=== PATIENT | male | born 1975 | race Caucasian/White ===

== ENCOUNTER 2018-03-22 16:53 | Observation (INO) | payer OTHER ==
[~2018-03-22] VITALS: Ht 177.8 cm; Wt 88.0 kg
[2018-03-22 18:31] VITALS: BP 121/71
--- NOTE | 2018-03-22 19:15 | NUR ---
Pt was direct admit from Dr. Rubio's office to [facility] room 120 via wheelchair, accompanied & nursing staff. Pt transferred from [facility] to bed independently, steady gait noted. Pt here for c/o heartburn amd r/o CP. Pt currently denies pain. Admission assessment completed. Health history and home medications reviewed with pt. VSS. Pt lives at home with . SCD for VTE. Pt refused Pneumonia vaccine. POC reviewed with pt, understanding verbalized. Pt was given written information regarding hospital policies, unit procedures and contact persons. Valuables were checked and left at bedside. Cardio consulted. Dr Rubio called for orders. EKG, CXR and labs drawn. Call light within reach.
[2018-03-22 19:27] VITALS: BP 120/64
[2018-03-22] MEDS ORDERED: CALC11776 PO (19:51)
[2018-03-22] MEDS ORDERED: FAMOTIDINE 20 MG TABLET PO PRN (20:00)
[2018-03-22] MEDS ORDERED: NICOTINE 21MG PATCH. TD PRN (20:15)
[2018-03-22] MEDS: PANTOPRAZOLE 40 MG TABLET. PO SCH (21:00)
[2018-03-22 21:04] LABS: BASO # 0.1 x10^3/uL (0.0-0.2); BASO % 1 % (0-3); EOS # 0.2 x10^3/uL (0.0-0.7); EOS % 2 % (0-3); HEMATOCRIT 44.1 % (39.0-53.0); HEMOGLOBIN 15.2 g/dL (13.0-17.5); LYMPH # 2.8 x10^3/uL (1.0-4.8); LYMPH % 28 % (24-48); MEAN CORPUSCULAR HEMOGLOBIN 31 pg (25-35); MEAN CORPUSCULAR HGB CONC 34 g/dL (31-37); MEAN CORPUSCULAR VOLUME 90 fL (79-100); MONO # 0.7 x10^3/uL (0.0-1.1); MONO % 7 % (0-9); NEUT # 6.5 x10^3uL (1.8-7.7); NEUT % 64 % (31-73); PLATELET COUNT 167 x10^3/uL (140-400); RED CELL DISTRIBUTION WIDTH 13.5 % (11.5-14.5); WHITE BLOOD COUNT 10.3 x10^3/uL (4.0-11.0)
[2018-03-22 21:15] LABS: ALBUMIN 3.6 g/dL (3.4-5.0); ALBUMIN/GLOBULIN RATIO 1.1 (1.0-1.7); CALCIUM 8.9 mg/dL (8.5-10.1); CREATININE 1.1 mg/dL (0.7-1.3); GFR 73.4; POTASSIUM 3.7 mmol/L (3.5-5.1); TOTAL BILIRUBIN 0.2 mg/dL (0.2-1.0); TOTAL PROTEIN 6.8 g/dL (6.4-8.2)
[2018-03-22 22:24] VITALS: BP 119/72
--- NOTE | 2018-03-22 23:09 | RAD ---
PA and lateral chest radiograph. History: Chest pain, shortness of air, hypertension. Comparison: September 30, 2016. Findings: Cardiomediastinal silhouette is within normal limits for size. Bilateral lung whitney appear clear without evidence of infiltrate, effusion, or pneumothorax. Impression: 1. No acute cardiopulmonary process. Electronically signed by: Washington Norman MD (03/22/2018 11:06 PM) [facility]
[2018-03-23 05:03] LABS: BACTERIA,URINE 0 /HPF (0-FEW); BILIRUBIN,URINE NEG (NEG); CLARITY,URINE CLEAR; COLOR,URINE YELLOW; GLUCOSE,URINE NEG (NEG); NITRITE,URINE NEG (NEG); RBC,URINE 0 /HPF (0-2); SQUAMOUS EPITHELIAL CELL,UR OCC /LPF; UROBILINOGEN,URINE 0.2 mg/dL (0.2 mg/dL); WBC,URINE RARE /HPF (0-4)
[2018-03-23 05:28] VITALS: BP 118/70
[2018-03-23] MEDS: PANTOPRAZOLE 40 MG TABLET. PO SCH (08:33)
--- NOTE | 2018-03-23 10:00 | PDOC2 ---
CONSULT Date of Admission DATE: 03/23/18 TIME: 09:55 Reason for Consult: cp History of Present Illness Mr Sharpe is a 42 year old male who presented to his PCP office with complaints of chest pain for which he was admitted and consult was called. He reports pain in the epigastric area with burning up into his throat. He denies any increase with exertion, movement or deep inspiration. Discomfort is worse when laying down. He reports frequent reflux symptoms so tried antacids, drinking water and drinking milk without relief so presented for eval. He reports his symptoms improved after Protonix and pepcid given in ED. He reports his symptoms always occur around eating and are worse at night when laying down. He reports occasional midsternal pain that seems to be associated with painful swallowing of food, "like getting stuck". He reports some dyspnea on exertion which he states is stable and improved with inhaler use. He reports his functional capacity as at least 1 mile and denies any problems with stairs. He reports occasional palpitations which feel like rapid beats followed by skipped beats. He denies any associated symptoms and reports palpitations only last a few seconds. He denies any lightheadedness, presyncope or syncope. He does report occasional shortness of breath when initially laying down. He frequently uses his rescue inhaler at bedtime. Cardiovascular: hyperipidemia (He does not take recommended medication for HLD) Pulmonary: COPD GI: GERD Heme/Onc: No pertinent hx Hepatobiliary: No pertinent hx Psych: No pertinent hx Musculoskeletal: No pertinent hx Rheumatologic: No pertinent hx Infectious disease: No pertinent hx ENT: No pertinent hx Renal/: No pertinent hx Endocrine: No pertinent hx Dermatology: No pertinent hx Past Surgical History unremarkable Family History He denies any family history of premature coronary disease or SCD. +family history of factor V deficiency. Social History smoker, social ETOH, no illicit drugs Current Medications Current Medications Pantoprazole Sodium (Protonix) 40 mg DAILYAC PO Last administered on 03/23/18at 08:33; Start 03/22/18 at 21:00 Famotidine (Pepcid) 20 mg PRN BID PRN PO Acid Reflux Last administered on at 21:00; Start 03/22/18 at 20:00 Nicotine (Nicoderm Cq 21mg) 1 patch PRN DAILY PRN TD SMOKING CESSATION Last administered on 03/22/18at 21:01; Start 03/22/18 at 20:15 Active Scripts Active Reported Tums Ultra Strength (Calcium Carbonate) 1,177 Mg Tab.chew 1,177 Mg PO PRN QID PRN Allergies: Coded Allergies: No Known Drug Allergies (Unverified , 09/30/16) Review of System as per HPI or negative General: Alert, Oriented X3, Cooperative, No acute distress HEENT: Atraumatic, EOMI, Mucous membr. moist/pink Lungs: Other (coarse without overt crackles, rhonchi or wheezing) Heart: Regular rate, Normal S1, Normal S2, Other (no obvious murmurs, no gallops, clicks or rubs) Abdomen: Normal bowel sounds, Soft, No tenderness Extremities: No cyanosis, No edema, Normal pulses Neuro: Normal gait, Normal speech, Strength at 5/5 X4 ext Psych/Mental Status: Mental status NL, Mood NL VITALS Vital Signs Date Time Temp Pulse Resp B/P (MAP) Pulse Ox O2 Delivery O2 Flow Rate FiO2 03/23/18 05:28 97.9 77 18 118/70 (86) 93 Room Air Labs Laboratory Tests Test 03/22/18 20:30 03/23/18 02:15 03/23/18 04:00 03/23/18 07:07 White Blood Count 10.3 x10^3/uL (4.0-11.0) Red Blood Count 4.90 x10^6/uL (4.30-5.70) Hemoglobin 15.2 g/dL (13.0-17.5) Hematocrit 44.1 % (39.0-53.0) Mean Corpuscular Volume 90 fL (79-100) Mean Corpuscular Hemoglobin 31 pg (25-35) Mean Corpuscular Hemoglobin Concent 34 g/dL (31-37) Red Cell Distribution Width 13.5 % (11.5-14.5) Platelet Count 167 x10^3/uL (140-400) Neutrophils (%) (Auto) 64 % (31-73) Lymphocytes (%) (Auto) 28 % (24-48) Monocytes (%) (Auto) 7 % (0-9) Eosinophils (%) (Auto) 2 % (0-3) Basophils (%) (Auto) 1 % (0-3) Neutrophils # (Auto) 6.5 x10^3uL (1.8-7.7) Lymphocytes # (Auto) 2.8 x10^3/uL (1.0-4.8) Monocytes # (Auto) 0.7 x10^3/uL (0.0-1.1) Eosinophils # (Auto) 0.2 x10^3/uL (0.0-0.7) Basophils # (Auto) 0.1 x10^3/uL (0.0-0.2) D-Dimer (Opal) 0.47 mg/L (0.00-0.50) Sodium Level 139 mmol/L (136-145) Potassium Level 3.7 mmol/L (3.5-5.1) Chloride Level 103 mmol/L (98-107) Carbon Dioxide Level 28 mmol/L (21-32) Anion Gap 8 (6-14) Blood Urea Nitrogen 12 mg/dL (8-26) Creatinine 1.1 mg/dL (0.7-1.3) Estimated GFR (Cockcroft-Gault) 73.4 BUN/Creatinine Ratio 11 (6-20) Glucose Level 108 mg/dL (70-99) Calcium Level 8.9 mg/dL (8.5-10.1) Total Bilirubin 0.2 mg/dL (0.2-1.0) Aspartate Amino Transf (AST/SGOT) 23 U/L (15-37) Alanine Aminotransferase (ALT/SGPT) 47 U/L (16-63) Alkaline Phosphatase 62 U/L (46-116) Creatine Kinase 251 U/L (39-308) 221 U/L (39-308) 219 U/L (39-308) Creatine Kinase MB (Mass) 1.9 ng/mL (0.0-3.6) 1.7 ng/mL (0.0-3.6) 1.5 ng/mL (0.0-3.6) Creatine Kinase MB Relative Index 0.8 % (0-4) 0.8 % (0-4) 0.7 % (0-4) Troponin I Quantitative < 0.017 ng/mL (0-0.055) < 0.017 ng/mL (0-0.055) < 0.017 ng/mL (0-0.055) JP-Yea-N-Type Natriuretic Peptide 18 pg/mL (0-124) Total Protein 6.8 g/dL (6.4-8.2) Albumin 3.6 g/dL (3.4-5.0) Albumin/Globulin Ratio 1.1 (1.0-1.7) Urine Collection Type Unknown Urine Color Yellow Urine Clarity Clear Urine pH 6.0 Urine Specific [place] 1.015 Urine Protein Neg (NEG-TRACE) Urine Glucose (UA) Neg mg/dL (NEG) Urine Ketones (Stick) Neg mg/dL (NEG) Urine Blood Neg (NEG) Urine Nitrite Neg (NEG) Urine Bilirubin Neg (NEG) Urine Urobilinogen Dipstick 0.2 mg/dL (0.2 mg/dL) Urine Leukocyte Esterase Neg (NEG) Urine RBC 0 /HPF (0-2) Urine WBC Rare /HPF (0-4) Urine Squamous Epithelial Cells Occ /LPF Urine Bacteria 0 /HPF (0-FEW) Images CXR - Impression: 1. No acute cardiopulmonary process. EKG - sinus rhythm, no acute abnormalities Assessment/Plan 1. Chest pain - atypical, no acute EKG abnormalities, CE negative x3. Check echo. add ASA. No beta sandor for atypical cp, secondary to COPD, unless abnormal echo or arrhythmias on tele. 2. GERD - PPI, per PCP 3. HLD - check lipids 4. COPD - per PCP 5. palpitations - asymptomatic. Could consider event monitoring outpatient. No significant arrhythmias on tele. 6. tobaccoism Suggest check echo and lipids. Discomfort most consistent with GERD. Consider check H Pylori and possible GI eval. Discussed risks/benefits and alteratives to stress testing. Ambulate and if echo WNL, Ok for discharge from CV standpoint with outpatient follow up. Resume statin as indicated after review of lipids. RF reduction encouraged to include low cholesterol diet, regular exercise and smoking cessation. MADIHA DELANEY [employer] Mar 23, 2018 10:00
[2018-03-23 10:12] VITALS: BP 132/75
[2018-03-23] MEDS ORDERED: PANT40TA5 PO (13:22)
[2018-03-23] MEDS ORDERED: Nicotine 21MG TD (13:22)
[2018-03-23] MEDS ORDERED: FAMO20TA5 PO (13:22)
--- NOTE | 2018-03-23 13:35 | CARD ---
MR#: [id number] Date of Study: 03/23/2018 Ordering Physician: MADIHA DELANEY, Referring Physician: DEEDEE GOODRICH, Tech: KRISTIN Perez APPROVED REPORT EXAM: Two-dimensional and M-mode echocardiogram with Doppler and color Doppler. Other Information Quality : Average INDICATION Chest Pain 2D DIMENSIONS IVSd1.0 (0.7-1.1cm)Aortic Root(2D)3.4 (2.0-3.7cm) LVDd4.6 (3.9-5.9cm)LVOT Diameter2.3 (1.8-2.4cm) PWd1.2 (0.7-1.1cm)LVDs3.7 (2.5-4.0cm) FS (%) 22.0 %SV38.3 ml LVEF(%)50.0 (>50%) Aortic Valve AoV Peak Roc.93.0cm/Zaria Peak GR.3.5mmHg LVOT Peak Roc.73.2cm/sAVA (VMAX)3.39cm2 Tricuspid Valve TR P. [id number]/sRAP [id number] TR Peak Gr.[id number] LEFT VENTRICLE The left ventricle is normal size. There is normal left ventricular wall thickness. The systolic func tion is at the lower limits of normal. The Ejection Fraction is 50-55%. Septal motion suggestive of c onduction defect. Otherwise, grossly normal wall motion. The left ventricular diastolic function and filling is normal for age. RIGHT VENTRICLE The right ventricle is normal size. There is normal right ventricular wall thickness. The right ventr icular systolic function is normal. ATRIA The left atrium size is normal. The right atrium size is normal. The interatrial septum is intact wit h no evidence for an atrial septal defect or patent foramen ovale as noted on 2-D or Doppler imaging. AORTIC VALVE The aortic valve is trileaflet. The aortic valve is mildly sclerotic. Doppler and Color Flow revealed trace aortic regurgitation. There is no significant aortic valvular stenosis. MITRAL VALVE The mitral valve leaflets are sclerotic with mild anterior leaflet thickening. There is no mitral alicia ve stenosis. Doppler and Color Flow revealed no mitral valve regurgitation noted. TRICUSPID VALVE The tricuspid valve is normal in structure and function. Doppler and Color Flow revealed trace tricus pid regurgitation. There is no tricuspid valve stenosis. PULMONIC VALVE The pulmonic valve is not well visualized. Doppler and Color Flow revealed trace pulmonic valvular re gurgitation. There is no pulmonic valvular stenosis. GREAT VESSELS The aortic root is normal in size. The IVC is normal in size and collapses >50% with inspiration. PERICARDIAL EFFUSION There is no pleural effusion. There is no evidence of significant pericardial effusion. Critical Notification Critical Value: No <Conclusion> The systolic function is at the lower limits of normal. The Ejection Fraction is 50-55%. Septal motion suggestive of conduction defect. Otherwise, grossly normal wall motion. Signed by : Chuckie Cobos, Electronically Approved : 03/23/2018 13:35:03
--- NOTE | 2018-03-23 15:49 | NUR ---
NSG NOTE; DISCHARGE VERBAL AND WRITTEN DISCHARGE INSTRUCTIONS GIVEN TO PT WITH VERBAL UNDERSTANDING. RX X 3 CALLED TO PT'S PHARMACY DISCHARGE TO HOME AT 1525 VIA AMB ACCOMP BY
[2018-03-24] MEDS ORDERED: ASPIRIN ENTERIC COATED 81 MG TABLET.DR. PO SCH (08:00)
[2018-03-25 13:12] LABS: H PYLORI IGA <9.0 units (0.0-8.9); H PYLORI IGM <9.0 units (0.0-8.9)
== END 2018-03-23 15:25 | disposition home or self-care (01) ==
LOC: INTOOBSV 18:08 → 1 SOUTH 18:08
PROVIDERS: ADMIT Family Medicine; ATTEND Family Medicine
DX: R07.89 Other chest pain (principal); R10.13 Epigastric pain; R00.2 Palpitations; J44.9 Chronic obstructive pulmonary disease, unspecified; K21.9 Gastro-esophageal reflux disease without esophagitis; E78.5 Hyperlipidemia, unspecified; F17.200 Nicotine dependence, unspecified, uncomplicated
CPT/HCPCS: 36415; 71046; 80053; 80061; 81001; 82553; 83880; 84484; 85025; 85379; 86677; 93306; G0378; G0379

== ENCOUNTER 2018-07-04 11:52 | Emergency (ER) | payer OTHER ==
[~2018-07-04] VITALS: Ht 177.8 cm; Wt 88.0 kg
[~2018-07-04 11:52] MED LIST: CALC11776 PO; FAMO20TA5 PO; Nicotine 21MG TD; PANT40TA5 PO
[2018-07-04 12:10] VITALS: BP 116/65
[2018-07-04] MEDS ORDERED: CYCL-331 PO (12:20)
[2018-07-04] MEDS ORDERED: TRAM50TA PO (12:20)
[2018-07-04] MEDS: oxyCODONE/APAP 5/325 1 TAB TABLET PO ONE (12:26)
--- NOTE | 2018-07-04 15:37 | ED.ADGEN ---
Past History Past Medical History: COPD, GERD Past Surgical History: No Surgical History Alcohol Use: Occasionally Drug Use: None Adult General Chief Complaint Chief Complaint Low back pain HPI HPI Patient is a 43-year-old male with history of chronic low back pain presents with acute low back pain starting several days prior to ED arrival. Pain is located over the lower lumbar paravertebral region is nonradiating. It is not associated with urinary frequency urgency or hematuria. No motor weakness or loss of sensation or incontinence. He is rated moderate to severe and is partial improvement with naproxen. Pain is worse with palpation movement and ambulation. He has not been evaluated for his primary care physician for his current symptoms.[] Review of Systems Review of Systems ROS as per HPI [] All other systems were reviewed and found to be within normal limits, except as documented in this note. Current Medications Current Medications Current Medications Medications (Trade) Dose Ordered Sig/Tess Start Time Stop Time Status Last Admin Dose Admin Oxycodone/ Acetaminophen (Percocet 5/325) 1 tab 1X ONCE 07/04/18 12:30 07/04/18 12:31 DC 07/04/18 12:26 1 TAB Allergies Allergies Allergies Coded Allergies Type Severity Reaction Last Updated Verified No Known Drug Allergies 09/30/16 No Physical Exam Physical Exam Constitutional: Well developed, well nourished, no acute distress, non-toxic appearance. [] HENT: Normocephalic, atraumatic, bilateral external ears normal, oropharynx moist, no oral exudates, nose normal. [[] Skin: Warm, dry, no erythema, no rash. [] Back: No tenderness, no line bony tenderness, cough or bruising. Diffuse lower lumbar paravertebral pain, worse with palpation movement and rotation.. [] Extremities: No tenderness, no cyanosis, no clubbing, ROM intact, no edema. [] Neurologic: Alert and oriented X 3, lower extremity, normal motor function, normal sensory function, no focal deficits noted. [] Psychologic: Affect normal, judgement normal, mood normal. [] Current Patient Data Vital Signs Vital Signs Date Time Temp Pulse Resp B/P (MAP) Pulse Ox O2 Delivery O2 Flow Rate FiO2 07/04/18 12:10 98.3 91 20 97 Room Air EKG EKG [] Radiology/Procedures Radiology/Procedures [] Course & Med Decision Making Course & Med Decision Making Pertinent Labs and Imaging studies reviewed. (See chart for details) [Exacerbation of back pain without radicular symptoms or neurologic deficit.] Final Impression Final Impression [#1 acute low back pain] Faye Disclaimer Faye Disclaimer This electronic medical record was generated, in whole or in part, using a voice recognition dictation system. ARIEL FIGUEROA DO Jul 04, 2018 15:37
== END 2018-07-04 12:26 | disposition home or self-care (01) ==
LOC: ER 11:52
DX: M54.5 Low back pain (principal); G89.29 Other chronic pain; J44.9 Chronic obstructive pulmonary disease, unspecified; K21.9 Gastro-esophageal reflux disease without esophagitis
CPT/HCPCS: 99283

== ENCOUNTER 2021-02-23 17:07 | Emergency (ER) | payer OTHER ==
[~2021-02-23] VITALS: Ht 177.8 cm; Wt 81.3 kg
[~2021-02-23 17:07] MED LIST changes: +CYCL-331 PO; -PANT40TA5 PO; +PANT40TA6 PO; +TRAM50TA PO
[2021-02-23 17:25] VITALS: BP 142/80
--- NOTE | 2021-02-23 17:31 | PHYS DOC ---
Past History Past Medical History: COPD, GERD Past Surgical History: No Surgical History Alcohol Use: Occasionally Drug Use: None Adult General Chief Complaint Chief Complaint: FINGER INJURY [facility] HPI Patient is a 45-year-old male who presents with significant other for right middle finger injury. Injury onset was 1 week ago while at work. Reports he was working with a bent overhead when he jammed his finger. Patient has reported a dull ongoing pain with minimal swelling ever since. He he has not taken anything for the pain, has not iced region at all. Denies any changes in motor or sensory or neurologic function but admits his PIP has continued to be swollen which concerned him prompting him to come in for arrival and evaluation. Denies any other concerning medical issues, is not on any blood thinners Review of Systems Review of Systems Fourteen body systems of review of systems have been reviewed. See HPI for pertinent positives and negative responses, other whaley all other systems are negative, non-pertinent or non-contributory Allergies Allergies Allergies Coded Allergies Type Severity Reaction Last Updated Verified No Known Drug Allergies 09/30/16 No Physical Exam Physical Exam Constitutional: Well developed, well nourished, no acute distress, non-toxic appearance. HENT: Normocephalic, atraumatic, bilateral external ears normal, oropharynx moist, no oral exudates, nose normal. Eyes: PERRLA, EOMI, conjunctiva normal, no discharge. Neck: Normal range of motion, no tenderness, supple, no stridor. Cardiovascular: Heart rate regular per monitor Lungs & Thorax: No respiratory distress or accessory muscle use, bilateral chest rise Abdomen: Abdomen soft, non-tender, bowel sounds present in all quadrants, no guarding or rebound, nonacute abdomen. Skin: Warm, dry, no erythema, no rash. Back: No tenderness, no CVA tenderness. Extremities: No tenderness, no cyanosis, no clubbing, ROM intact, mild edema present over right hand PIP on third finger. No anatomical snuffbox tenderness, appropriate active and passive range of motion of all digits of right upper extremity. No [place] signs Neurologic: Alert and oriented X 3, normal motor & sensory function, medial radial and ulnar nerves of right upper extremity intact, no focal deficits noted. Psychologic: Affect normal, judgement normal, mood normal. Current Patient Data Vital Signs Vital Signs Date Time Temp Pulse Resp B/P (MAP) Pulse Ox O2 Delivery O2 Flow Rate FiO2 02/23/21 17:25 98.2 72 16 142/80 (100) 100 Room Air Vital Signs Date Time Temp Pulse Resp B/P (MAP) Pulse Ox O2 Delivery O2 Flow Rate FiO2 02/23/21 17:25 98.2 72 16 142/80 (100) 100 Room Air EKG EKG [] Radiology/Procedures Radiology/Procedures [] Heart Score C/O Chest Pain: No Risk Factors: Risk Factors: DM, Current or recent (<one month) smoker, HTN, HLP, family history of CAD, obesity. Risk Scores: Risk Factors: DM, Current or recent (<one month) smoker, HTN, HLP, family history of CAD, obesity. Course & Med Decision Making Course & Med Decision Making ABCs unremarkable. I disclosed entirety of ER findings and discussed most likely diagnosis of right finger contusion. I discussed utility of x-ray and offered this to patient but he and deferred. Given the fact that he has not tried anything in attempt to alleviate/improve his symptoms, I educated him on importance of Tylenol and/or NSAID use with ice as needed. Seeing as he deferred x-ray, I stressed need for close outpatient follow-up to review today's ER visit. Strict return precautions were also discussed at length with good understanding by patient. Patient voiced understanding and agreement with the plan. Patient knows to come back for repeat evaluation if concerning signs or symptoms present prior to outpatient follow-up. Hemodynamically stable, ambulatory and well-appearing at time of disposition. Dragon Disclaimer Dragon Disclaimer This electronic medical record was generated, in whole or in part, using a voice recognition dictation system. Departure Departure: Impression: Primary Impression: Finger contusion Disposition: HOME / SELF CARE / HOMELESS Condition: GOOD Referrals: DEEDEE GOODRICH MD (PCP) Additional Instructions: It is likely that you have experienced a contusion/deep bruise within the joint that is causing you pain. The best treatment for this injury is continued range of motion to prevent a frozen joint. A Rest, Ice, Compression, Elevation (RICE) strategy may also be helpful in the acute phase. Please utilize Tylenol and/or ibuprofen or other NSAID equivalent as needed for pain. As disclosed, I recomme nd you contact your primary care physician first thing on Thursday to review ER visit and need for outpatient follow-up. We discussed potential need for further diagnostic work-up in ER such as radiographs; however, given that management likely would not change based on your physical exam this was deferred. There was no indication for joint aspiration given that there was only mild soft tissue edema from injury and no obvious joint effusion. If any other concerning signs or symptoms present prior to outpatient follow-up please don't hesitate to come back for repeat evaluation. It was a pleasure to take care of you and I wish you the best going forward BERTHA DAY DO Feb 23, 2021 17:31
== END 2021-02-23 18:01 | disposition home or self-care (01) ==
LOC: ER 17:07
DX: S60.031A Contusion of right middle finger without damage to nail, initial encounter (principal); J44.9 Chronic obstructive pulmonary disease, unspecified; K21.9 Gastro-esophageal reflux disease without esophagitis; W18.09XA Striking against other object with subsequent fall, initial encounter; Y93.89 Activity, other specified; Y92.89 Other specified places as the place of occurrence of the external cause; Y99.8 Other external cause status
CPT/HCPCS: 99282